=== PATIENT | female | born 1945 | race Two or more races ===

== ENCOUNTER 2024-06-19 09:21 | Emergency (ER) | payer OTHER ==
[~2024-06-19] VITALS: Ht 154.9 cm; Wt 41.3 kg
[2024-06-19 10:25] LABS: ABG BASE EXCESS 1.4 mmol/L (-2.0-3.0); ABG OXYGEN SATURATION 98.9 % (94.0-98.0); ABG PH 7.467 (7.350-7.450); ABG PO2 201.5 mmHg (83.0-108.0); ABG TOTAL HEMOGLOBIN 13.1 G/dL (12.0-16.0); COHb 0.3 % (0.5-1.5); MetHb 0.1 % (0.0-1.5); O2Hb 98.5 % (94.0-97.0); SITE, ABG RIGHT BRACHIAL
[2024-06-19] MEDS ORDERED: CEFTRIAXONE 1GM BAG (ER ONLY) 50 ML IV ONE (10:25)
[2024-06-19] MEDS ORDERED: CHOL200026 PO (10:27)
[2024-06-19] MEDS ORDERED: BRIM5DRO11 EACHEYE (10:27)
[2024-06-19] MEDS ORDERED: FLUO10TA PO (10:27)
[2024-06-19] MEDS ORDERED: MULT-1168 PO (10:27)
[2024-06-19] MEDS ORDERED: CRAN1TAB PO (10:27)
[2024-06-19] MEDS ORDERED: FERR-68 PO (10:27)
[2024-06-19] MEDS ORDERED: DABI150C PO (10:27)
[2024-06-19] MEDS ORDERED: ACET-868 PO (10:27)
[2024-06-19] MEDS ORDERED: MAGN400O6 PO (10:27)
[2024-06-19] MEDS ORDERED: FLUT16SP BNOSTRILS (10:27)
[2024-06-19] MEDS ORDERED: ALEN70TA80 PO (10:27)
[2024-06-19 10:31] LABS: BASOPHILS % (AUTO) 0.4 % (0.0-2.0); EOSINOPHILS # (AUTO) 0.1 K/uL (0.0-0.7); HEMATOCRIT 41 % (33-45); HEMOGLOBIN 13.3 g/dL (11.5-14.8); LYMPHOCYTES # (AUTO) 1.1 K/uL (0.8-4.8); LYMPHOCYTES % (AUTO) 15.6 % (20.0-44.0); MEAN CORPUSCULAR HEMOGLOBIN 26 PG (26.0-33.0); MEAN CORPUSCULAR HGB CONC 32 g/dl (31.0-36.0); MEAN CORPUSCULAR VOLUME 82 fL (82-100); MONOCYTES # (AUTO) 0.3 K/uL (0.1-1.30); MONOCYTES % (AUTO) 4.3 % (2.0-12.0); NEUTROPHILS # (AUTO) 5.4 K/uL (1.8-8.9); NEUTROPHILS % (AUTO) 78.7 % (43.0-81.0); PLATELET COUNT (AUTO) 239 K/uL (150-450); RED BLOOD CELL COUNT(AUTO) 5.03 MIL/uL (4.0-5.2); RED CELL DISTRIBUTION WIDTH 18.7 % (11.5-15.0); WHITE BLOOD COUNT (AUTO) 6.9 K/uL (4.3-11.0)
[2024-06-19] MEDS: IV NS 0.9% 1,000 ML BAG IV ONE (10:33)
[2024-06-19] MEDS: CEFTRIAXONE 1GM BAG (ER ONLY) 50 ML IV ONE (10:34)
[2024-06-19 10:44] LABS: INR 1.08 (0.91-1.10); PARTIAL THROMBOPLASTIN TIME 28.8 SEC (24.3-34.3); PROTHROMBIN TIME 11.4 SECS (9.2-11.1)
[2024-06-19 10:47] LABS: ALBUMIN 2.7 g/dL (3.4-5.0); BILIRUBIN,DIRECT 0.2 mg/dL (0.0-0.2); BILIRUBIN,TOTAL 0.6 mg/dL (0.2-1.0); CALCIUM, SERUM 8.7 mg/dL (8.5-10.1); CREATININE 0.6 mg/dL (0.6-1.3); TOTAL PROTEIN, SERUM 8.2 g/dL (6.4-8.2)
[2024-06-19] MEDS: AZITHROMYCIN 500 MG in IV D5W 250 ML IV ONE (11:13)
[2024-06-19 11:36] LABS: LACTIC ACID 1.3 mmol/L (0.4-2.0)
[2024-06-19 18:17] VITALS: BP 124/78; TEMP 97.7; O2SAT 98
== END 2024-06-19 18:17 | disposition short-term general hospital (02) ==
LOC: ER 09:25
DX: J18.9 Pneumonia, unspecified organism (principal); J96.01 Acute respiratory failure with hypoxia; E88.09 Other disorders of plasma-protein metabolism, not elsewhere classified; E86.0 Dehydration; E11.42 Type 2 diabetes mellitus with diabetic polyneuropathy; F32.A Depression, unspecified; I10 Essential (primary) hypertension; Z79.02 Long term (current) use of antithrombotics/antiplatelets; Z79.899 Other long term (current) drug therapy; Z86.711 Personal history of pulmonary embolism; Z20.822 Contact with and (suspected) exposure to COVID-19
CPT/HCPCS: 99291; 96365; 71045; 96367; 87426; 93005; 82803; 87804 ×2; 84145; 85025; 80048; 87040 ×2; 83605; 80076; 36415; 87420; 85730; J0456; J0696; J7060